=== PATIENT | female | born 1935 | race Caucasian/White ===

== ENCOUNTER 2024-06-26 17:48 | Inpatient (IN) ==
--- NOTE | 2024-06-26 18:23 | Emergency Department Note ---
Impression & Plan Fall, Acute right hip pain, Hematoma of right hip, Hypoxia ED Provider Note NAME: JOSIAH PATEL AGE: 88 SEX: F : 1935 ARRIVES VIA: Ambulance INFORMANT: [Patient][nursing] ED PROVIDER(S): [Eric Jackson MD] CHIEF COMPLAINT: Trauma HISTORY OF PRESENT ILLNESS: The patient is an 88-year-old female who fell around 14 hours ago. She lives alone. She somehow managed to get her feet tangled with her walker and fell. She injured her right hip. The patient was able to ambulate throughout the day but had quite a bit of pain. She noticed a large amount of swelling and did decide to present to the hospital. Prior to arrival, she took 3 Tylenol and her nightly Eliquis. The patient did strike her head with this fall, no loss of consciousness. No hematoma to the scalp. She is not short of breath. She denies any neck pain, back pain, chest pain or abdominal pain. No upper extremity pain. Her only injury seems to be to the right hip. EMS did note a large hematoma in the area where she complains of pain. Of note, the patient had a friend arrive and she states that the patient complained of feeling lightheaded yesterday. PMHx/PSHx/Social Hx: See Below PHYSICAL EXAM: GENERAL: Patient is in no acute distress. HEENT: No acute trauma, normocephalic atraumatic, mucous membranes moist, no nasal congestion. NECK: No stridor, no adenopathy, nontender cervical spine, trachea is midline. LUNGS: Clear to auscultation bilaterally, no wheeze, no rhonchi, breath sounds equal. Chest: Nontender chest wall, no contusions. HEART: Mildly tachycardic with what appears to be a regular rhythm. There are no obvious murmurs. ABDOMEN: Soft, nontender, no peritonitis. EXTREMITIES: No cyanosis. There is a large hematoma to the lateral aspect of the right hip. No gross deformity to the right lower extremity. Movement of this right hip when she is lying flat causes minimal pain. NEUROLOGIC: Oriented x 3, no acute motor or sensory deficits, no focal weakness. SKIN: No jaundice, no diaphoresis. Pelvis: Stable to rock. DIFFERENTIAL DIAGNOSIS: Intracranial bleeding, C-spine injury, pelvic fracture or hip fracture, hip dislocation, UTI, among others. EMERGENCY DEPARTMENT PROCEDURES: MEDICAL DECISION MAKING: There is no leukocytosis or concerning anemia. There is a normal platelet count. No coagulopathy by our testing. No renal failure or significant electrolyte abnormality. Bilirubin was mildly elevated, the remaining liver enzymes were unremarkable. ECG showed a sinus tachycardia, no obvious acute ischemia. Cardiac enzyme testing x 1 was not consistent with acute cardiac injury. Urinalysis showed dehydration, no infection. Respiratory bio fire returned negative. Brain CT showed no acute bleed or mass effect. C-spine CT showed no acute fracture. Films of the pelvis and right hip were performed, there was no fracture or hip dislocation. Chest x-ray did not show pneumonia or CHF. On exam, the patient had a large right hip hematoma that was tender to touch. The patient presents after falling. She has a large right hip hematoma which explains her pain. She does take Eliquis twice a day. The patient was given O2 supplementation as she was noted to be hypoxic, the cause for this is unclear. The patient is not short of breath. The patient is in need of a hospital stay given her findings and discomfort. She will need her hemoglobin trended and the hematoma followed clinically. I spoke with the patient and family. I spoke with case management, the on-call hospitalist was consulted. Prior/Outside records/notes reviewed: Today's EMS notes describing her presentation and transport to this hospital. ECG per my interpretation: Indication was fall. The ECG shows what appears to be a sinus tachycardia with a first-degree AV block. The rate is 101. LVH is present. There is no acute ST elevation. There are inverted T waves in the high lateral leads. No PVCs. The QTc is 461. Continuous Cardiac Monitoring per my interpretation: An order was placed for continuous cardiac monitoring. The monitor shows a rate of 102 with sinus tachycardia. Imaging/x-ray results per my interpretation: Chest film does not show CHF, pneumonia or pneumothorax. Pelvis and right hip films were done, there is a right prosthetic hip noted to be in proper position. No fracture seen. Chronic Medical/Social conditions affecting care: Advanced age, chronic Eliquis use. Care/Management discussed with: Case management, the on-call hospitalist. Level of care consideration(s): After review of the information above and other included data: --I believe the patient requires escalation of care to admission DISPOSITION: Admission Past Med/Surg History Problem List (Updated 06/27/24 @ 01:57 by Eric Jackson MD) Hypoxia (Acute) Hematoma of right hip (Acute) Acute right hip pain (Acute) Fall (Acute) Medical History Atrial fibrillation Social History Smoking Status: Former smoker Tobacco Type: Cigarettes Smoking End Date: 60+ years ago; Hx Alcohol Use: No Hx Substance Use: No Preferred Language: Persian Communication Ability: Effective Insurance Sales Executive Required: No Beliefs That Will Affect Care: None Current Living Situation: Alone Current Living Situation Comment: Lives at home alone Other Information That Helps Us Care for You: No Feels Safe at Home: Yes Safety Concerns: Feels Safe At This Time Assistive Devices: Cane, Denture - Upper, Denture - Lower, Glasses and Walker Allergies Allergies Allergy/AdvReac Type Severity Reaction Status Date / Time No Known Allergies Allergy Verified 06/26/24 20:22 Home Meds Home Medications Medication Instructions Recorded Confirmed apixaban 5 mg tablet (Eliquis) 5 mg PO BID 06/26/24 06/26/24 brimonidine 0.15 % eye drops 1 drp ophthalmic (eye) BID 06/27/24 06/27/24 travoprost 0.004 % eye drops 1 drp ophthalmic (eye) HS 06/27/24 06/27/24 Results & Data (ED) Vital Signs Vital Signs - 24 hr 06/26/24 17:59 06/26/24 17:59 06/26/24 18:00 Temperature 36.8 C Temperature Source Oral Pulse Rate 104 H Pulse Rate [Apical] Respiratory Rate 29 H Respiratory Depth Respiratory Pattern Blood Pressure 155/108 H Blood Pressure [Left Arm] Blood Pressure Mean 123 Blood Pressure Mean [Left Arm] Pulse Oximetry 87 L 88 L Oxygen Delivery Method Room Air Nasal Cannula Nasal Cannula Oxygen Flow Rate 2 0 Sepsis Recent Fever Within 48 Hours No Sepsis New/Unexplained Change in Mental Status No Sepsis Action Taken by Nursing Physician Notified Oxygen Flow Rate - Titration 2 Pulse Oximetry Post Tiitration 90 06/26/24 18:15 06/26/24 18:27 06/26/24 19:16 Temperature Temperature Source Pulse Rate 103 H Pulse Rate [Apical] 102 H Respiratory Rate 20 Respiratory Depth Respiratory Pattern Blood Pressure Blood Pressure [Left Arm] 139/108 H Blood Pressure Mean Blood Pressure Mean [Left Arm] 118 Pulse Oximetry 89 L 92 Oxygen Delivery Method Nasal Cannula Nasal Cannula Oxygen Flow Rate 2 3 Sepsis Recent Fever Within 48 Hours Sepsis New/Unexplained Change in Mental Status Sepsis Action Taken by Nursing Oxygen Flow Rate - Titration 4 Pulse Oximetry Post Tiitration 90 06/26/24 20:36 06/26/24 22:05 06/26/24 22:28 Temperature Temperature Source Pulse Rate 105 H Pulse Rate [Apical] 107 H 106 H Respiratory Rate 24 18 Respiratory Depth Normal Respiratory Pattern Regular Blood Pressure Blood Pressure [Left Arm] 133/92 132/100 Blood Pressure Mean Blood Pressure Mean [Left Arm] 105 110 Pulse Oximetry 90 91 Oxygen Delivery Method Nasal Cannula Nasal Cannula Oxygen Flow Rate 4 4 Sepsis Recent Fever Within 48 Hours Sepsis New/Unexplained Change in Mental Status Sepsis Action Taken by Nursing Oxygen Flow Rate - Titration Pulse Oximetry Post Tiitration Home Medications Current Medication List: was personally reviewed by me Laboratory Data Attestation: I reviewed the patient's lab results. 06/26/24 23:04 06/26/24 17:58 Lab Results 06/26/24 06/26/24 06/26/24 Range/Units 17:58 20:38 21:59 WBC 10.70 (4.8-10.8) K/ul RBC 4.09 L (4.20-5.40) M/uL Hgb 13.2 (12.0-16.0) g/dl Hct 40.7 (37.0-47.0) % MCV 99.5 (80.0-100.0) fL MCH 32.3 (25.0-34.0) pg MCHC 32.4 (32.0-36.0) g/dL RDW Std Deviation 52.0 H (36.4-46.3) fL RDW Coeff of Erlin 14.3 (11.5-14.5) % Plt Count 249 (130-400) K/uL MPV 9.3 L (9.4-12.4) fL Immature Gran % (Auto) 0.6 % Neut % (Auto) 75.9 % Lymph % (Auto) 17.0 % Hill % (Auto) 5.9 % Eos % (Auto) 0.3 % Baso % (Auto) 0.3 % Neut # (Auto) 8.13 H (1.40-6.50) K/uL Lymph # (Auto) 1.82 (1.20-3.40) K/uL Hill # (Auto) 0.63 H (0.11-0.59) K/uL Eos # (Auto) 0.03 (0.00-0.50) K/uL Baso # (Auto) 0.03 (0.00-0.20) K/uL Immature Gran # (Auto) 0.06 (0.01-0.20) K/uL PT 11.9 (9.0-12.0) Seconds INR 1.1 (0.9-1.1) APTT 31 (21-31) Seconds PTT Ratio 1.2 Sodium 135 L (136-145) mmol/L Potassium 4.3 (3.5-5.1) mmol/L Chloride 105 (98-107) mmol/L Carbon Dioxide 18 L (21-32) mmol/L Anion Gap 12 H (3-11) BUN 17 (6-23) mg/dl Creatinine 0.72 (0.6-1.2) mg/dl Est Cr Clr Drug Dosing 52.5 ml/min Est GFR ( Amer) 86.7 ml/min Est GFR (Non-Af Amer) 74.8 ml/min BUN/Creatinine Ratio 23.6 H (10-20) Glucose 110 H (70-99(Fasting)) mg/dl Calcium 9.5 (8.6-10.3) mg/dl Magnesium 1.7 (1.7-2.4) mg/dl Total Bilirubin 1.8 H (0.2-1.0) mg/dl AST 18 (13-39) U/L ALT 13 (7-52) U/L Alkaline Phosphatase 72 (34-104) U/L Troponin I High Sens 6.8 (0-14) pg/ml Total Protein 6.9 (6.0-8.3) gm/dl Albumin 4.5 (3.4-5.0) gm/dl Globulin 2.4 L (2.5-4.0) gm/dl Albumin/Globulin Ratio 1.9 (0.9-2) Urine Color Yellow Urine Appearance Clear (Clear) Urine pH 5.0 (4.5-7.5) Ur Specific [place] 1.025 (1.000-1.030) Urine Protein Trace H (Negative) Urine Glucose (UA) Negative (Negative) Urine Ketones 2+ H (Negative) Urine Blood Negative (Negative) Urine Nitrite Negative (Negative) Urine Bilirubin Negative (Negative) Urine Urobilinogen Negative (Negative) Ur Leukocyte Esterase Trace H (Negative) Urine RBC 0-2 (0-2) /hpf Urine WBC 0-5 (0-5) /hpf Ur Epithelial Cells 11-20 H (0-2) /hpf Urine Bacteria None Seen (None Seen) Adenovirus (PCR) Not Detected (NotDetected) B. pertussis DNA (PCR) Not Detected (NotDetected) B.parapertussis DNA PCR Not Detected (NotDetected) C. pneumoniae DNA (PCR) Not Detected (NotDetected) Coronavirus OC43 (PCR) Not Detected (NotDetected) Coronavirus HKU1 (PCR) Not Detected (NotDetected) Coronavirus 229E (PCR) Not Detected (NotDetected) SARS-CoV-2 (PCR) Not Detected (NotDetected) Coronavirus NL63 (PCR) Not Detected (NotDetected) Human Metapneumovir PCR Not Detected (NotDetected) Influenza Type A (PCR) Not Detected (NotDetected) Influenza Type B (PCR) Not Detected (NotDetected) M. pneumoniae (PCR) Not Detected (NotDetected) Parainfluenza 1 (PCR) Not Detected (NotDetected) Parainfluenza 2 (PCR) Not Detected (NotDetected) Parainfluenza 3 (PCR) Not Detected (NotDetected) Parainfluenza 4 (PCR) Not Detected (NotDetected) RSV (PCR) Not Detected (NotDetected) Entero/Rhino (PCR) Not Detected (NotDetected) Blood Type B Negative Antibody Screen NEGATIVE Administered Medications Acetaminophen (Acetaminophen 325 Mg Tab) 650 mg PO QID PRN PRN Reason: pain/fever Stop: 07/26/24 21:03 Last Admin: 06/26/24 23:15 Dose: 650 mg Documented By: EMB Discontinued Medications Albuterol (Albut/Ipratrop 3mg/0.5mg Neb 3 Ml Vial) 3 ml NEB NOW STA; Protocol Stop: 06/27/24 00:45 Last Admin: 06/27/24 01:02 Dose: 3 ml Documented By: ENRIQUE Magnesium Sulfate/Dextrose (Magnesium Sulfate / D5w) 1 gm in 100 mls @ 50 mls/hr IV ONE ONE Stop: 06/26/24 22:48 Last Infusion: 06/26/24 23:38 Dose: Infused Documented By: Admin: 06/26/24 21:55 Dose: 50 mls/hr Documented By: JEANNE Doxycycline Hyclate 100 mg/ (Dextrose) 100 mls @ 50 mls/hr IV NOW STA Stop: 06/27/24 00:40 Last Admin: 06/26/24 23:47 Dose: 50 mls/hr Documented By: JEANNE Ioversol (Optiray 320 125ml) 91 ml IV ONCE ONE Stop: 06/27/24 00:12 Last Admin: 06/27/24 01:20 Dose: Not Given Documented By: MG Ioversol (Optiray 320 125ml) 116 ml IV ONCE ONE Stop: 06/27/24 00:14 Last Admin: 06/27/24 00:14 Dose: 116 ml Documented By: CHEYENNE Metoprolol Tartrate (Metoprolol Tartrate 1 Mg/Ml Vial) 2.5 mg IV NOW STA Stop: 06/26/24 23:21 Last Admin: 06/26/24 23:25 Dose: 2.5 mg Documented By: EMB Imaging Data Radiologist's Impression: Hip/Pelvis X-Ray 06/26/24 18:05 XR hip RT 2V w pelvis CLINICAL HISTORY: Fall. COMPARISON: None FINDINGS: Right hip arthroplasty is intact. There is no periprosthetic fracture. There are no fractures within the pelvis or hips. Sacroiliac joints and symphysis pubis are intact. Lateral right thigh soft tissue swelling is present. IMPRESSION: 1. No fractures within the pelvis or hips. 2. Intact right hip arthroplasty. 3. Lateral right thigh soft tissue swelling. This favors a contusion. ACT 112: Negative or not required by law. Electronically signed by: Feroz Francis M.D. 06/26/2024 6:35 PM Chest X-Ray 06/26/24 18:12 PORTABLE SUPINE AP CHEST RADIOGRAPH CLINICAL HISTORY: trauma COMPARISON STUDY: No previous studies for comparison. FINDINGS: Lung volumes are normal. Lungs are clear. There is no pneumothorax or pleural effusion on supine exam. Cardiac size is normal. Mediastinal contours are normal. There is no evidence for pulmonary edema. IMPRESSION: No acute cardiopulmonary findings. ACT 112: Negative or not required by law. Electronically signed by: Feroz Francis M.D. 06/26/2024 6:[address] 06/26/24 18:15 Exam(s): CT C SPINE EXAM: CT Cervical Spine Without Intravenous Contrast CLINICAL HISTORY: Reason for exam: fall. TECHNIQUE: Axial computed tomography images of the cervical spine without intravenous contrast. CTDI is 22.95 mGy and DLP is 462.14 mGy-cm. Automated exposure control was utilized for the study. A dose lowering technique was utilized adhering to the principles of ALARA. COMPARISON: No relevant prior studies available. FINDINGS: Vertebrae: Grade 1 spondylolisthesis seen at C3/4 junction. There is C4/5 and C5/6 moderately advanced degenerative disc disease with disc space narrowing. No acute fracture. Soft tissues: Unremarkable. IMPRESSION: No acute fracture Electronically signed by: Jerson Arias MD 06/26/24 19:[address] 06/26/24 18:15 Exam(s): CT HEAD Without Contrast EXAM: CT Head Without Intravenous Contrast CLINICAL HISTORY: Reason for exam: fall, eliquis. TECHNIQUE: Axial computed tomography images of the head/brain without intravenous contrast. CTDI is 36.79 mGy and DLP is 624.41 mGy-cm. Automated exposure control was utilized for the study. A dose lowering technique was utilized adhering to the principles of ALARA. COMPARISON: No relevant prior studies available. FINDINGS: Brain: Chronic periventricular ischemic demolishing changes seen due to small vessel disease. No hemorrhage. Ventricles: Unremarkable. No ventriculomegaly. Bones/joints: Unremarkable. No acute fracture. Soft tissues: Unremarkable. Sinuses: Unremarkable as visualized. No acute sinusitis. Mastoid air cells: Unremarkable as visualized. No mastoid effusion. Other findings: Calcifications are seen in bilateral basal ganglion. IMPRESSION: No acute intracranial abnormality Electronically signed by: Jerson Arias MD 06/26/24 19:37 PM Discharge Plan Visit Data Chief Complaint: Trauma Stated Complaint: Fall ED Provider: Eric Jackson Discharge Problem: Fall, Acute right hip pain, Hematoma of right hip, Hypoxia Patient Disposition: Admitted As Inpatient Condition: Fair Discharge Instructions Interventions: ED Discharge Assessment Last Done: 06/27/24 00:03 Discharge Problem: Fall Qualifiers: Encounter type: initial encounter Qualified Code(s): W19.XXXA - Unspecified fall, initial encounter Hematoma of right hip Qualifiers: Encounter type: initial encounter Qualified Code(s): S70.01XA - Contusion of right hip, initial encounter
[2024-06-26 18:27] LABS: Basophils # (auto) 0.03 K/uL (0.00-0.20); Basophils % (auto) 0.3 %; Eosinophils # (auto) 0.03 K/uL (0.00-0.50); Eosinophils % (auto) 0.3 %; Hematocrit (blood only) 40.7 % (37.0-47.0); Hemoglobin 13.2 g/dl (12.0-16.0); Immature Granulocytes # (auto) 0.06 K/uL (0.01-0.20); Immature Granulocytes % (auto) 0.6 %; Lymphocytes # (auto) 1.82 K/uL (1.20-3.40); Mean Corpuscular Hemoglobin 32.3 pg (25.0-34.0); Mean Corpuscular Hgb Conc 32.4 g/dL (32.0-36.0); Mean Corpuscular Volume 99.5 fL (80.0-100.0); Mean Platelet Volume 9.3 fL (9.4-12.4); Monocytes # (auto) 0.63 K/uL (0.11-0.59); Monocytes % (auto) 5.9 %; Neutrophils # (auto) 8.13 K/uL (1.40-6.50); Neutrophils % (auto) 75.9 %; Platelet Count 249 K/uL (130-400); RDW Coefficient of Variation 14.3 % (11.5-14.5); Red Blood Count 4.09 M/uL (4.20-5.40)
[2024-06-26 18:34] LABS: INR 1.1 (0.9-1.1); Partial Thromboplastin Ratio 1.2; Partial Thromboplastin Time 31 Seconds (21-31); Prothrombin Time 11.9 Seconds (9.0-12.0)
--- NOTE | 2024-06-26 18:36 | XRay Report ---
XR hip RT 2V w pelvis CLINICAL HISTORY: Fall. COMPARISON: None FINDINGS: Right hip arthroplasty is intact. There is no periprosthetic fracture. There are no fractu res within the pelvis or hips. Sacroiliac joints and symphysis pubis are intact. Lateral right thigh soft tissue swelling is present. IMPRESSION: 1. No fractures within the pelvis or hips. 2. Intact right hip arthroplasty. 3. Lateral right thigh soft tissue swelling. This favors a contusion. ACT 112: Negative or not required by law. Electronically signed by: Feroz Francis M.D. 06/26/2024 6:35 PM
--- NOTE | 2024-06-26 18:37 | XRay Report ---
PORTABLE SUPINE AP CHEST RADIOGRAPH CLINICAL HISTORY: trauma COMPARISON STUDY: No previous studies for comparison. FINDINGS: Lung volumes are normal. Lungs are clear. There is no pneumothorax or pleural effusion on s upine exam. Cardiac size is normal. Mediastinal contours are normal. There is no evidence for pulmona ry edema. IMPRESSION: No acute cardiopulmonary findings. ACT 112: Negative or not required by law. Electronically signed by: Feroz Francis M.D. 06/26/2024 6:36 PM
[2024-06-26 18:39] LABS: Albumin Globulin Ratio 1.9 (0.9-2); Albumin Level 4.5 gm/dl (3.4-5.0); BUN Creatinine Ratio 23.6 (10-20); Bilirubin,Total 1.8 mg/dl (0.2-1.0); Calcium 9.5 mg/dl (8.6-10.3); Creatinine Clr Calc Pharmacy 52.5 ml/min; Est GFR (African American) 86.7 ml/min; Est GFR (Non-African American) 74.8 ml/min; Globulin 2.4 gm/dl (2.5-4.0); Magnesium 1.7 mg/dl (1.7-2.4); Potassium 4.3 mmol/L (3.5-5.1); Total Protein 6.9 gm/dl (6.0-8.3)
[2024-06-26 18:45] LABS: Troponin I High Sensitivity 6.8 pg/ml (0-14)
--- NOTE | 2024-06-26 19:38 | CT Scan Report ---
Exam(s): CT HEAD Without Contrast EXAM: CT Head Without Intravenous Contrast CLINICAL HISTORY: Reason for exam: fall, eliquis. TECHNIQUE: Axial computed tomography images of the head/brain without intravenous contrast. CTDI is 36.79 mGy and DLP is 624.41 mGy-cm. Automated exposure control was utilized for the study. A dose lowering technique was utilized adhering to the principles of ALARA. COMPARISON: No relevant prior studies available. FINDINGS: Brain: Chronic periventricular ischemic demolishing changes seen due to small vessel disease. No hemorrhage. Ventricles: Unremarkable. No ventriculomegaly. Bones/joints: Unremarkable. No acute fracture. Soft tissues: Unremarkable. Sinuses: Unremarkable as visualized. No acute sinusitis. Mastoid air cells: Unremarkable as visualized. No mastoid effusion. Other findings: Calcifications are seen in bilateral basal ganglion. IMPRESSION: No acute intracranial abnormality Electronically signed by: Jerson Arias MD 06/26/24 19:37 PM
--- NOTE | 2024-06-26 19:43 | CT Scan Report ---
Exam(s): CT C SPINE EXAM: CT Cervical Spine Without Intravenous Contrast CLINICAL HISTORY: Reason for exam: fall. TECHNIQUE: Axial computed tomography images of the cervical spine without intravenous contrast. CTDI is 22.95 mGy and DLP is 462.14 mGy-cm. Automated exposure control was utilized for the study. A dose lowering technique was utilized adhering to the principles of ALARA. COMPARISON: No relevant prior studies available. FINDINGS: Vertebrae: Grade 1 spondylolisthesis seen at C3/4 junction. There is C4/5 and C5/6 moderately advanced degenerative disc disease with disc space narrowing. No acute fracture. Soft tissues: Unremarkable. IMPRESSION: No acute fracture Electronically signed by: Jerson Arias MD 06/26/24 19:42 PM
[2024-06-26 20:56] LABS: Appearance Urine Clear (Clear); Bilirubin Urine Negative (Negative); Blood Urine Negative (Negative); Color Urine Yellow; Glucose Urine UA Negative (Negative); Ketones Urine 2+ (Negative); Leukocyte Esterase Urine Trace (Negative); Nitrite Urine Negative (Negative); Protein Urine Trace (Negative); Specific Gravity Urine 1.025 (1.000-1.030); Urobilinogen Urine Negative (Negative)
[2024-06-26 21:28] LABS: Bacteria Urine None Seen (None Seen); RBC Urine 0-2 /hpf (0-2); WBC Urine 0-5 /hpf (0-5)
[2024-06-26] MEDS: MAGNESIUM SULFATE / D5W 1 GM/100 ML BAG IV ONE (21:55)
--- NOTE | 2024-06-26 22:27 | History & Physical Report ---
Date of Service June 26, 2024 Assessment & Plan (1) Acute hypoxemic respiratory failure: Plan: Secondary to complicated bronchitis No sepsis for now CHF, no overt fluid overload although BNP elevated PAF on Eliquis, patient NSR, patient noncompliant with home beta-michael Traumatic head injury, traumatic right hip contusion secondary to fall hypertension, stable Hyperglycemia ro DM past tobacco abuse Medical telemetry Supplemental O2 Doxycycline, nebs stat Resume home beta-michael Hold Eliquis for now given trauma Repeat CT head [address] Resume Eliquis if H&H stable and CT head negative for bleed Check hemoglobin A1c PT OT eval DVT prophylaxis SCDs while Eliquis on hold DNR Total critical care time was 40 minutes. Text document was generated using [employer] voice recognition software. It may contain grammatical or spelling errors. Kindly contact undersigned for clarification of any documentation item in question. History of Present Illness Chief Complaint: Recurrent falls Primary Care Provider: Merlyn Arboleda PA-C History obtained from patient and records. Medical history significant for CHF, A-fib on Eliquis, hypertension, past tobacco abuse, glaucoma. Patient with junky cough symptoms the last couple of days. Denies aspiration. No chest pain or SOB. Not sure about sick contacts. Patient fell at home this morning. Feet got tangled in the walker. Walker hit patient's head. No LOC, syncope, chest pain, SOB. Achy right hip pain. Patient unable to get up but fell back again from weakness and lightheadedness. O2 sats 80s upon arrival at the ER. Medical History as above Surgical History : MARIA ISABEL, knee surgery Family History : Heart disease, DM Personal/Social history : past tobacco abuse, no EtOH intake Allergies Allergy/AdvReac Type Severity Reaction Status Date / Time No Known Allergies Allergy Verified 06/26/24 20:22 Home Medications Medication Instructions Recorded Confirmed Type apixaban 5 mg tablet (Eliquis) 5 mg PO BID 06/26/24 06/26/24 History brimonidine 0.15 % eye drops 1 drp ophthalmic (eye) BID 06/27/24 06/27/24 History travoprost 0.004 % eye drops 1 drp ophthalmic (eye) HS 06/27/24 06/27/24 History Past Med/Surg History Problem List (Updated 06/27/24 @ 07:27 by [place] MD) Acute hypoxemic respiratory failure Hypoxia (Acute) Hematoma of right hip (Acute) Acute right hip pain (Acute) Fall (Acute) Medical History Atrial fibrillation Social History Smoking Status: Former smoker Tobacco Type: Cigarettes Smoking End Date: 60+ years ago; Hx Alcohol Use: No Hx Substance Use: No Preferred Language: Georgian Communication Ability: Effective 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 Beliefs That Will Affect Care: None Current Living Situation: Alone Current Living Situation Comment: Lives at home alone Other Information That Helps Us Care for You: No Feels Safe at Home: Yes Safety Concerns: Feels Safe At This Time Assistive Devices: Cane, Denture - Upper, Denture - Lower, Glasses and Walker Review of Systems Review of Systems: As per HPI, all other systems reviewed and negative Physical Exam Physical Exam: GENERAL: Slightly uncomfortable, slightly anxious, slightly hard of hearing, no respiratory distress SKIN: Normal color, warm HEENT: Bespectacled, [place] palpebral conjunctivae, no ptosis, dry buccal mucosa, nasal cannula in place NECK : Supple, no tenderness CHEST : Decreased breath sounds, no tenderness HEART : Tachycardic, no obvious murmurs ABDOMEN: Some distention, nontender EXTREMITIES : Minimal LE swelling, right hip tenderness, no other conspicuous deformities noted NEUROLOGIC : Coherent, no facial asymmetry, slightly hard of hearing, gait and stance not assessed Results & Data Results & Data Vital Signs (Past 12 Hours) Vital Signs Temp Pulse Pulse Resp BP BP Pulse Ox 06/26/24 22:05 105 H 06/26/24 20:36 107 H 24 133/92 90 06/26/24 19:16 102 H 20 139/108 H 92 06/26/24 18:27 103 H 06/26/24 18:15 89 L 06/26/24 18:00 88 L 06/26/24 17:59 06/26/24 17:59 36.8 C 104 H 29 H 155/108 H 87 L O2 Del Method O2 Flow Rate 06/26/24 22:05 06/26/24 20:36 Nasal Cannula 4 06/26/24 19:16 Nasal Cannula 3 06/26/24 18:27 06/26/24 18:15 Nasal Cannula 2 06/26/24 18:00 Nasal Cannula 0 06/26/24 17:59 Nasal Cannula 2 06/26/24 17:59 Room Air Laboratory Results Laboratory Results WBC 10.70 K/ul (4.8-10.8) 06/26/24 17:58 RBC 4.09 M/uL (4.20-5.40) L 06/26/24 17:58 Hgb 13.2 g/dl (12.0-16.0) 06/26/24 17:58 Hct 40.7 % (37.0-47.0) 06/26/24 17:58 MCV 99.5 fL (80.0-100.0) 06/26/24 17:58 MCH 32.3 pg (25.0-34.0) 06/26/24 17:58 MCHC 32.4 g/dL (32.0-36.0) 06/26/24 17:58 RDW Std Deviation 52.0 fL (36.4-46.3) H 06/26/24 17:58 RDW Coeff of Erlin 14.3 % (11.5-14.5) 06/26/24 17:58 Plt Count 249 K/uL (130-400) 06/26/24 17:58 MPV 9.3 fL (9.4-12.4) L 06/26/24 17:58 Immature Gran % (Auto) 0.6 % 06/26/24 17:58 Neut % (Auto) 75.9 % 06/26/24 17:58 Lymph % (Auto) 17.0 % 06/26/24 17:58 Bonner % (Auto) 5.9 % 06/26/24 17:58 Eos % (Auto) 0.3 % 06/26/24 17:58 Baso % (Auto) 0.3 % 06/26/24 17:58 Neut # (Auto) 8.13 K/uL (1.40-6.50) H 06/26/24 17:58 Lymph # (Auto) 1.82 K/uL (1.20-3.40) 06/26/24 17:58 Bonner # (Auto) 0.63 K/uL (0.11-0.59) H 06/26/24 17:58 Eos # (Auto) 0.03 K/uL (0.00-0.50) 06/26/24 17:58 Baso # (Auto) 0.03 K/uL (0.00-0.20) 06/26/24 17:58 Immature Gran # (Auto) 0.06 K/uL (0.01-0.20) 06/26/24 17:58 PT 11.9 Seconds (9.0-12.0) 06/26/24 17:58 INR 1.1 (0.9-1.1) 06/26/24 17:58 APTT 31 Seconds (21-31) 06/26/24 17:58 PTT Ratio 1.2 06/26/24 17:58 Sodium 135 mmol/L (136-145) L 06/26/24 17:58 Potassium 4.3 mmol/L (3.5-5.1) 06/26/24 17:58 Chloride 105 mmol/L (98-107) 06/26/24 17:58 Carbon Dioxide 18 mmol/L (21-32) L 06/26/24 17:58 Anion Gap 12 (3-11) H 06/26/24 17:58 BUN 17 mg/dl (6-23) 06/26/24 17:58 Creatinine 0.72 mg/dl (0.6-1.2) 06/26/24 17:58 Est Cr Clr Drug Dosing 52.5 ml/min 06/26/24 17:58 Est GFR ( Amer) 86.7 ml/min 06/26/24 17:58 Est GFR (Non-Af Amer) 74.8 ml/min 06/26/24 17:58 BUN/Creatinine Ratio 23.6 (10-20) H 06/26/24 17:58 Glucose 110 mg/dl (70-99(Fasting)) H 06/26/24 17:58 Calcium 9.5 mg/dl (8.6-10.3) 06/26/24 17:58 Magnesium 1.7 mg/dl (1.7-2.4) 06/26/24 17:58 Total Bilirubin 1.8 mg/dl (0.2-1.0) H 06/26/24 17:58 AST 18 U/L (13-39) 06/26/24 17:58 ALT 13 U/L (7-52) 06/26/24 17:58 Alkaline Phosphatase 72 U/L (34-104) 06/26/24 17:58 Troponin I High Sens 6.8 pg/ml (0-14) 06/26/24 17:58 Total Protein 6.9 gm/dl (6.0-8.3) 06/26/24 17:58 Albumin 4.5 gm/dl (3.4-5.0) 06/26/24 17:58 Globulin 2.4 gm/dl (2.5-4.0) L 06/26/24 17:58 Albumin/Globulin Ratio 1.9 (0.9-2) 06/26/24 17:58 Urine Color Yellow 06/26/24 20:38 Urine Appearance Clear (Clear) 06/26/24 20:38 Urine pH 5.0 (4.5-7.5) 06/26/24 20:38 Ur Specific [place] 1.025 (1.000-1.030) 06/26/24 20:38 Urine Protein Trace (Negative) H 06/26/24 20:38 Urine Glucose (UA) Negative (Negative) 06/26/24 20:38 Urine Ketones 2+ (Negative) H 06/26/24 20:38 Urine Blood Negative (Negative) 06/26/24 20:38 Urine Nitrite Negative (Negative) 06/26/24 20:38 Urine Bilirubin Negative (Negative) 06/26/24 20:38 Urine Urobilinogen Negative (Negative) 06/26/24 20:38 Ur Leukocyte Esterase Trace (Negative) H 06/26/24 20:38 Urine RBC 0-2 /hpf (0-2) 06/26/24 20:38 Urine WBC 0-5 /hpf (0-5) 06/26/24 20:38 Ur Epithelial Cells 11-20 /hpf (0-2) H 06/26/24 20:38 Urine Bacteria None Seen (None Seen) 06/26/24 20:38 Blood Type B Negative 06/26/24 17:58 Antibody Screen NEGATIVE 06/26/24 17:58 Impressions Hip/Pelvis X-Ray 06/26/24 18:05 XR hip RT 2V w pelvis CLINICAL HISTORY: Fall. COMPARISON: None FINDINGS: Right hip arthroplasty is intact. There is no periprosthetic fracture. There are no fractures within the pelvis or hips. Sacroiliac joints and symphysis pubis are intact. Lateral right thigh soft tissue swelling is present. IMPRESSION: 1. No fractures within the pelvis or hips. 2. Intact right hip arthroplasty. 3. Lateral right thigh soft tissue swelling. This favors a contusion. ACT 112: Negative or not required by law. Electronically signed by: Feroz Francis M.D. 06/26/2024 6:35 PM Chest X-Ray 06/26/24 18:12 PORTABLE SUPINE AP CHEST RADIOGRAPH CLINICAL HISTORY: trauma COMPARISON STUDY: No previous studies for comparison. FINDINGS: Lung volumes are normal. Lungs are clear. There is no pneumothorax or pleural effusion on supine exam. Cardiac size is normal. Mediastinal contours are normal. There is no evidence for pulmonary edema. IMPRESSION: No acute cardiopulmonary findings. ACT 112: Negative or not required by law. Electronically signed by: Feroz Francis M.D. 06/26/2024 6:[address] 06/26/24 18:15 Exam(s): CT C SPINE EXAM: CT Cervical Spine Without Intravenous Contrast CLINICAL HISTORY: Reason for exam: fall. TECHNIQUE: Axial computed tomography images of the cervical spine without intravenous contrast. CTDI is 22.95 mGy and DLP is 462.14 mGy-cm. Automated exposure control was utilized for the study. A dose lowering technique was utilized adhering to the principles of ALARA. COMPARISON: No relevant prior studies available. FINDINGS: Vertebrae: Grade 1 spondylolisthesis seen at C3/4 junction. There is C4/5 and C5/6 moderately advanced degenerative disc disease with disc space narrowing. No acute fracture. Soft tissues: Unremarkable. IMPRESSION: No acute fracture Electronically signed by: Jerson Arias MD 06/26/24 19:[address] 06/26/24 18:15 Exam(s): CT HEAD Without Contrast EXAM: CT Head Without Intravenous Contrast CLINICAL HISTORY: Reason for exam: fall, eliquis. TECHNIQUE: Axial computed tomography images of the head/brain without intravenous contrast. CTDI is 36.79 mGy and DLP is 624.41 mGy-cm. Automated exposure control was utilized for the study. A dose lowering technique was utilized adhering to the principles of ALARA. COMPARISON: No relevant prior studies available. FINDINGS: Brain: Chronic periventricular ischemic demolishing changes seen due to small vessel disease. No hemorrhage. Ventricles: Unremarkable. No ventriculomegaly. Bones/joints: Unremarkable. No acute fracture. Soft tissues: Unremarkable. Sinuses: Unremarkable as visualized. No acute sinusitis. Mastoid air cells: Unremarkable as visualized. No mastoid effusion. Other findings: Calcifications are seen in bilateral basal ganglion. IMPRESSION: No acute intracranial abnormality Electronically signed by: Jerson Arias MD 06/26/24 19:[address]: LUNGS: No focal consolidation, pleural effusion, or pneumothorax. Atelectasis at the lung bases. No acute pulmonary embolism. Diagnostic Findings EKG as per my interpretation :Rate 105, sinus tachycardia, LAD, LAFB, LVH, septal infarct, T wave abnormalities lateral leads
[2024-06-26] MEDS ORDERED: PROMETHAZINE 6.25 MG/50.25 ML BAG IV PRN (22:41)
[2024-06-26 22:55] LABS: Adenovirus PCR Not Detected (NotDetected); Bordetella parapertussis PCR Not Detected (NotDetected); Bordetella pertussis PCR Not Detected (NotDetected); Chlamydia pneumoniae PCR Not Detected (NotDetected); Coronavirus 229E PCR Not Detected (NotDetected); Coronavirus CoV-2 (COVID19)PCR Not Detected (NotDetected); Coronavirus HKU1 PCR Not Detected (NotDetected); Coronavirus NL63 PCR Not Detected (NotDetected); Coronavirus OC43PCR Not Detected (NotDetected); Human Metapneumovirus PCR Not Detected (NotDetected); Influenza A PCR Not Detected (NotDetected); Influenza B PCR Not Detected (NotDetected); Mycoplasma pneumoniae PCR Not Detected (NotDetected); Parainfluenza Virus 1 PCR Not Detected (NotDetected); Parainfluenza Virus 2 PCR Not Detected (NotDetected); Parainfluenza Virus 3 PCR Not Detected (NotDetected); Parainfluenza Virus 4 PCR Not Detected (NotDetected); Respiratory Syncytial VirusPCR Not Detected (NotDetected); Rhinovirus/Enterovirus PCR Not Detected (NotDetected)
[2024-06-26 23:15] LABS: Base Excess VBG -5.5 mEq/L; HCO3 VBG 18 mmol/L; Oxygen Saturation VBG 60.1 %; PCO2 VBG 27 mmHg (38-50); PO2 VBG 36 mmHg; pH VBG 7.42 (7.36-7.41)
[2024-06-26] MEDS: ACETAMINOPHEN 325 MG TAB PO PRN (23:15)
[2024-06-26 23:22] LABS: Hematocrit (blood only) 37.6 % (37.0-47.0); Hemoglobin 12.7 g/dl (12.0-16.0)
[2024-06-26] MEDS: METOPROLOL TARTRATE 1 MG/ML VIAL IV STA (23:25)
[2024-06-26] MEDS: DOXYCYCLINE HYCLATE 100 MG in DEXTROSE 5% MINI-B 100 ML IV STA (23:47)
[2024-06-27] MEDS: OPTIRAY 320 125ml IV ONE ×2 (00:14→01:20)
[2024-06-27] MEDS: ALBUT/IPRATROP 3MG/0.5MG NEB 3 ML VIAL NEB STA (01:02)
--- NOTE | 2024-06-27 01:15 | CT Scan Report ---
Exam(s): CTA CHEST IV Amt: 116 cc opti 320 EXAM: CT Angiography Chest With Intravenous Contrast CLINICAL HISTORY: Reason for exam: low o2,sob. TECHNIQUE: Axial computed tomographic angiography images of the chest with intravenous contrast. Automated exposure control was utilized for the study. A dose lowering technique was utilized adhering to the principles of ALARA. MIP reconstructed images were created and reviewed. COMPARISON: No relevant prior studies available. FINDINGS: LUNGS: No focal consolidation, pleural effusion, or pneumothorax. Atelectasis at the lung bases. HEART: Cardiomegaly. VASCULATURE: No acute pulmonary embolism. Atherosclerotic changes of the aorta. THYROID: Within normal limits. MEDIASTINUM + LYMPH NODES: There are no pathologically enlarged mediastinal, hilar, or axillary lymph nodes. SUPERIOR ABDOMEN: Hepatic steatosis. MUSCULOSKELETAL: Degenerative changes. IMPRESSION: No acute pulmonary embolism. Electronically signed by: Naresh Waters MD 06/27/24 01:14 AM
[2024-06-27 07:04] LABS: Estimated Average Glucose 111 mg/dl; Hemoglobin A1C 5.5 % (4.5-5.6)
[2024-06-27 07:17] LABS: Basophils # (auto) 0.02 K/uL (0.00-0.20); Basophils % (auto) 0.3 %; Eosinophils # (auto) 0.02 K/uL (0.00-0.50); Eosinophils % (auto) 0.3 %; Hematocrit (blood only) 33.7 % (37.0-47.0); Immature Granulocytes # (auto) 0.03 K/uL (0.01-0.20); Immature Granulocytes % (auto) 0.4 %; Lymphocytes % (auto) 24.1 %; Mean Corpuscular Hemoglobin 32.4 pg (25.0-34.0); Mean Corpuscular Hgb Conc 32.6 g/dL (32.0-36.0); Mean Corpuscular Volume 99.1 fL (80.0-100.0); Mean Platelet Volume 9.6 fL (9.4-12.4); Monocytes # (auto) 0.64 K/uL (0.11-0.59); Monocytes % (auto) 8.1 %; Neutrophils # (auto) 5.28 K/uL (1.40-6.50); Neutrophils % (auto) 66.8 %; Platelet Count 216 K/uL (130-400); RDW Coefficient of Variation 14.4 % (11.5-14.5); RDW Standard Deviation 52.9 fL (36.4-46.3); White Blood Count 7.89 K/ul (4.8-10.8)
[2024-06-27 07:33] LABS: BUN Creatinine Ratio 26.6 (10-20); Calcium 8.9 mg/dl (8.6-10.3); Creatinine Clr Calc Pharmacy 47.9 ml/min; Est GFR (African American) 77.5 ml/min; Est GFR (Non-African American) 66.8 ml/min
--- NOTE | 2024-06-27 08:13 | CT Scan Report ---
CT OF THE HEAD WITHOUT CONTRAST CLINICAL HISTORY: ffup, head trauma, eliquis COMPARISON STUDY: Head CT June 26, 2024. CT DOSE: 625.8 mGy.cm TECHNIQUE: Helical axial images of the head were obtained without IV contrast. Automated exposure con trol was utilized for the study. A dose lowering technique was utilized adhering to the principles o f ALARA. FINDINGS: No acute intracranial hemorrhage, midline shift or mass effect is present. The ventricular system is unremarkable. The basal cisterns are patent. No extra-axial collections are present. Bilate ral basal ganglia calcification is again noted. There is moderate atrophy and presumed small vessel d isease. There are no findings to suggest acute dural sinus thrombosis or acute territorial infarct. N o significant calvarial abnormalities are present. Visualized portions of the sinuses and mastoid air cells are clear. IMPRESSION: 1. No acute intracranial findings. 2. No calvarial fractures. ACT 112: Negative or not required by law. Electronically signed by: Feroz Francis M.D. 06/27/2024 8:11 AM
[2024-06-27] MEDS: BRIMONIDINE TARTRATE-P 0.15% 5 ML BTL OP SCH (09:10)
[2024-06-27] MEDS: DOXYCYCLINE HYCLATE 100 MG CAP PO SCH (09:12)
[2024-06-27] MEDS: METOPROLOL TARTRATE 25 MG TAB PO SCH (11:12)
--- NOTE | 2024-06-27 13:14 | Hospitalist Progress Note ---
Date of Service June 27, 2024 Assessment & Plan (1) Fall: Plan: Was admitted from primary care service with history of recurrent falls She has had a fall on the morning of admission when her feet got tangled in the walker Traumatic head injury, traumatic right hip contusion secondary to fall CT of the head and neck and relevant x-rays did not show any fracture Will get PT and OT evaluation and may need placement (2) Acute hypoxemic respiratory failure: Plan: She was noted to be hypoxic with shortness of breath in the emergency room with ongoing complaints of productive cough for the last few days CT of the chest was unremarkable and CTA did not show any pulmonary embolism No history of COPD Likely has complicated bronchitis No sepsis for now Started on doxycycline and will continue and finish the course Has been getting nebulized bronchodilator as needed as well Clinically much better May need a 2 steps O2 saturation test prior to discharge No history of CHF and the chest x-ray is not showing any congestive changes BNP was minimally high No signs of fluid overload Hypertension, stable Hyperglycemia ro DM HbA1c is 5.5 Past tobacco abuse DVT prophylaxis SCDs while Eliquis on hold Will start Eliquis DNR (3) Atrial fibrillation: Plan: PAF on Eliquis, patient NSR, patient noncompliant with home beta-michael Rate remains high at around 91 She remains asymptomatic Will start Eliquis Admission and Anticipated Discharge Date Admission Date: June 26, 2024 Subjective 06/27/2024 The patient was seen and examined in medical telemetry unit She was admitted with recurrent falls and noted to have cough with increasing shortness of breath Noted to be hypoxic in the emergency room and has been requiring up to 6 L to maintain saturation Noted to be very weak and lethargic this morning but no other acute symptoms Review of Systems Review of Systems: All systems reviewed and are unremarkable except as noted below Physical Exam Physical Exam: Sitting on a chair without any acute distress Constitutional: + ill appearing and average body habitus Eyes: PERRL, conjunctivae normal, anicteric sclerae ENMT: external ear and nose normal, oropharynx normal Neck: trachea midline, no thyromegaly Respiratory: + respiratory distress ( minimal respira tory distress at rest) Auscultation: + diminished lung sounds, + crackles ( occasional crackles at the bases) and + wheezes ( wheezing anteriorly) Cardiovascular: Rate/Rhythm: regular rate and regular rhythm Heart Sounds: normal S1 and normal S2; no murmur Extremities: no edema Gastrointestinal (Abdomen): Inspection/Auscultation: normal bowel sounds; abdomen not distended Percussion/Palpation: abdomen soft; abdomen nontender Musculoskeletal: No acute arthritis involving any of the joint Neurologic: normal touch/pain/proprioception and moves all extremities; no focal motor deficits Lymphatic: no cervical or axillary lymphadenopathy Results & Data Results & Data Vital Signs (Past 12 Hours) Vital Signs Temp Pulse Pulse Resp BP BP Pulse Ox 06/27/24 11:24 36.6 C 91 H 20 104/71 91 06/27/24 08:22 36.6 C 90 20 116/74 90 06/27/24 07:37 06/27/24 03:57 36.4 C L 89 20 107/76 92 06/27/24 01:05 85 20 90 06/27/24 00:56 36.5 C 76 18 133/82 93 O2 Del Method O2 Flow Rate 06/27/24 11:24 Oxymask 6 06/27/24 08:22 Oxymask 6 06/27/24 07:37 Non-rebreather 06/27/24 03:57 Oxymask 6 06/27/24 01:05 Oxymask 6 06/27/24 00:56 Oxymask 6 Laboratory Results Short CBC 06/26/24 06/26/24 06/27/24 Range/Units 17:58 23:04 06:52 WBC 10.70 7.89 (4.8-10.8) K/ul Hgb 13.2 12.7 11.0 L (12.0-16.0) g/dl Hct 40.7 37.6 33.7 L (37.0-47.0) % Plt Count 249 216 (130-400) K/uL BMP 06/26/24 06/27/24 17:58 06:52 Sodium 135 L 133 L Potassium 4.3 4.0 Chloride 105 105 Carbon Dioxide 18 L 18 L BUN 17 21 Creatinine 0.72 0.79 Glucose 110 H 104 H Calcium 9.5 8.9 Liver Function 06/26/24 Range/Units 17:58 Total Bilirubin 1.8 H (0.2-1.0) mg/dl AST 18 (13-39) U/L ALT 13 (7-52) U/L Alkaline Phosphatase 72 (34-104) U/L Albumin 4.5 (3.4-5.0) gm/dl Urine 06/26/24 Range/Units 20:38 Urine Color Yellow Urine Appearance Clear (Clear) Urine pH 5.0 (4.5-7.5) Ur Specific [place] 1.025 (1.000-1.030) Urine Protein Trace H (Negative) Urine Glucose (UA) Negative (Negative) Medications Administered Current Inpatient Medications Acetaminophen (Acetaminophen 325 Mg Tab) 650 mg PO QID PRN PRN Reason: pain/fever Stop: 07/26/24 21:03 Last Admin: 06/27/24 09:55 Dose: 650 mg Brimonidine Tartrate (Brimonidine Tartrate-P 0.15% 5 Ml Btl) 1 drops OP BID [facility] Stop: 07/27/24 08:59 Last Admin: 06/27/24 09:10 Dose: 1 btl Doxycycline Hyclate (Doxycycline Hyclate 100 Mg Cap) 100 mg PO BID [facility] Stop: 07/04/24 08:59 Last Admin: 06/27/24 09:12 Dose: 100 mg Promethazine HCl (Phenergan) 6.25 mg in 50.25 mls @ 201 mls/hr IV Q6H PRN PRN Reason: Nausea And Vomiting Stop: 07/26/24 22:40 Metoprolol Tartrate (Metoprolol Tartrate 25 Mg Tab) 25 mg PO BID [facility] Stop: 07/27/24 08:59 Last Admin: 06/27/24 11:12 Dose: 25 mg Travoprost (Travoprost Z 0.004% Oph Soln 2.5 Ml Btl) 1 drops OP HS [facility] Stop: 07/27/24 20:59 (1) Fall Encounter type: initial encounter Qualified Code(s): W19.XXXA - Unspecified fall, initial encounter
[2024-06-27] MEDS: TRAVOPROST Z 0.004% OPH SOLN 2.5 ML BTL OP SCH (21:07)
[2024-06-28 07:13] LABS: Basophils # (auto) 0.02 K/uL (0.00-0.20); Basophils % (auto) 0.2 %; Eosinophils # (auto) 0.06 K/uL (0.00-0.50); Eosinophils % (auto) 0.7 %; Hematocrit (blood only) 29.1 % (37.0-47.0); Hemoglobin 9.7 g/dl (12.0-16.0); Immature Granulocytes # (auto) 0.03 K/uL (0.01-0.20); Immature Granulocytes % (auto) 0.4 %; Lymphocytes # (auto) 2.44 K/uL (1.20-3.40); Lymphocytes % (auto) 29.9 %; Mean Corpuscular Hemoglobin 32.8 pg (25.0-34.0); Mean Corpuscular Hgb Conc 33.3 g/dL (32.0-36.0); Mean Corpuscular Volume 98.3 fL (80.0-100.0); Mean Platelet Volume 9.8 fL (9.4-12.4); Monocytes # (auto) 0.64 K/uL (0.11-0.59); Monocytes % (auto) 7.8 %; Neutrophils # (auto) 4.98 K/uL (1.40-6.50); Platelet Count 203 K/uL (130-400); RDW Coefficient of Variation 14.4 % (11.5-14.5); RDW Standard Deviation 52.3 fL (36.4-46.3); Red Blood Count 2.96 M/uL (4.20-5.40); White Blood Count 8.17 K/ul (4.8-10.8)
[2024-06-28 07:17] LABS: BUN Creatinine Ratio 29.7 (10-20); Calcium 8.9 mg/dl (8.6-10.3); Creatinine Clr Calc Pharmacy 41.6 ml/min; Est GFR (African American) 65.3 ml/min; Est GFR (Non-African American) 56.3 ml/min; Phosphorus 3.9 mg/dl (2.5-4.9)
[2024-06-28] MEDS: INFLUENZA VACC TS2024-25(65y+)/PF (IIV3) 0.5mL Syr IM ONE (10:52)
[2024-06-28] MEDS: PNEUMOCOCCAL VACCINE (PCV20) 20-VAL CONJ-DIP CRM/PF 0.5 ML SYR IM ONE (10:55)
--- NOTE | 2024-06-28 15:03 | Hospitalist Progress Note ---
Date of Service June 28, 2024 Assessment & Plan (1) Acute hypoxemic respiratory failure: (2) Fall: (3) Contusion of right hip: (4) Anemia: (5) Atrial fibrillation: Plan Patient status post fall with no obvious fractures, contusion the right hip also noted acute hypoxia. Chest CT unremarkable. Continuing oxygen needs Patient also noted declining hemoglobin, no obvious blood loss. Will continue to trend may need further evaluation if continues to trend downward, concern of possible hematoma developing on the hip. Liban currently on hold Continue therapies Case management continuing to pursue possible placement for rehabilitation [facility] Admission and Anticipated Discharge Date Admission Date: June 26, 2024 Subjective Patient feeling as though she is overall improving. Physical Exam Physical Exam: Constitutional: Alert, sitting on edge of bed, no acute distress HEENT: Mucous membranes moist. Lungs: Clear to auscultation, decreased, no wheezes rales or rhonchi CV: S1-S2, regular Abdomen: Soft, nontender, nondistended Extremities: No significant edema Neuro: No focal deficits Psych: Cooperative, normal mood Results & Data Results & Data Vital Signs (Past 12 Hours) Vital Signs Temp Pulse Pulse Resp BP Pulse Ox O2 Del Method 06/28/24 14:31 95 Nasal Cannula 06/28/24 14:05 65 06/28/24 11:35 36.5 C 54 L 19 120/74 98 Nasal Cannula 06/28/24 09:41 58 L 06/28/24 07:47 36.8 C 60 16 132/80 98 Nasal Cannula 06/28/24 07:38 Nasal Cannula 06/28/24 04:04 36.7 C 65 20 105/71 96 Nasal Cannula O2 Flow Rate 06/28/24 14:31 4 06/28/24 14:05 06/28/24 11:35 2 06/28/24 09:41 06/28/24 07:47 4 06/28/24 07:38 4 06/28/24 04:04 4 Diagnostic Findings Reviewed imaging, laboratory and diagnostic studies. Pertinent findings as below. Hemoglobin 9.7, trending down (2) Fall Encounter type: initial encounter Qualified Code(s): W19.XXXA - Unspecified fall, initial encounter
[2024-06-29 06:34] LABS: Hematocrit (blood only) 28.8 % (37.0-47.0); Hemoglobin 9.4 g/dl (12.0-16.0); Mean Corpuscular Hemoglobin 33.1 pg (25.0-34.0); Mean Corpuscular Hgb Conc 32.6 g/dL (32.0-36.0); Mean Corpuscular Volume 101.4 fL (80.0-100.0); Mean Platelet Volume 9.3 fL (9.4-12.4); Platelet Count 195 K/uL (130-400); RDW Coefficient of Variation 14.2 % (11.5-14.5); RDW Standard Deviation 52.7 fL (36.4-46.3); Red Blood Count 2.84 M/uL (4.20-5.40); White Blood Count 6.84 K/ul (4.8-10.8)
[2024-06-29 06:47] LABS: BUN Creatinine Ratio 34.9 (10-20); Calcium 9.1 mg/dl (8.6-10.3); Creatinine Clr Calc Pharmacy 45.6 ml/min; Potassium 4.3 mmol/L (3.5-5.1)
[2024-06-29 07:27] VITALS: RESP 18
--- NOTE | 2024-06-29 16:07 | Hospitalist Progress Note ---
Date of Service June 29, 2024 Assessment & Plan (1) Hematoma of right hip: (2) Contusion of right hip: (3) Fall: (4) Atrial fibrillation: (5) Acute blood loss anemia: (6) Acute hypoxemic respiratory failure: Plan Patient steadily improving status post fall with right hip contusion and hematoma. Patient will continue to benefit from some additional rehabilitation. Case management pursuing swing bed at [place]. Insurance authorization pending. Patient hemoglobin has stabilized. Acute blood loss anemia due to right hip hematoma. Would recommend holding Eliquis for 7 days status post fall and then can safely resume anticoagulation for her atrial fibrillation. Patient has been titrated off oxygen With adequate O2 sat on room air. Phone conversation with patient's son. Given update. Aware that we are awaiting placement to swing bed. Admission and Anticipated Discharge Date Admission Date: June 26, 2024 Subjective Patient significantly improved. On room air. No shortness of breath. Walked with therapy down the [place] and maintain adequate O2 sat. It is sore on her right hip. Physical Exam Physical Exam: Constitutional: Alert HEENT: Mucous membranes moist. Lungs: Clear to auscultation, decreased, no wheezes rales or rhonchi CV: S1-S2, regular Abdomen: Soft, nontender, nondistended Extremities: Large contusion/hematoma right lateral hip and thigh Neuro: No focal deficits Psych: Cooperative, normal mood Results & Data Results & Data Vital Signs (Past 12 Hours) Vital Signs Temp Pulse Resp BP Pulse Ox O2 Del Method 06/29/24 15:52 37.0 C 55 L 18 125/76 99 Room Air 06/29/24 07:26 36.6 C 72 18 133/78 100 Room Air Diagnostic Findings Reviewed imaging, laboratory and diagnostic studies. Pertinent findings as below. Hemoglobin 9.4 stable (1) Hematoma of right hip Encounter type: initial encounter Qualified Code(s): S70.01XA - Contusion of right hip, initial encounter (3) Fall Encounter type: initial encounter Qualified Code(s): W19.XXXA - Unspecified fall, initial encounter
[2024-06-30 07:19] VITALS: TEMP 97.7; O2SAT 93
--- NOTE | 2024-06-30 11:15 | Hospitalist Progress Note ---
Date of Service June 30, 2024 Assessment & Plan (1) Fall: Plan: Was admitted from primary care service with history of recurrent falls She has had a fall on the morning of admission when her feet got tangled in the walker Traumatic head injury, traumatic right hip contusion secondary to fall CT of the head and neck and relevant x-rays did not show any fracture Will get PT and OT evaluation and may need placement Will be transferred to [facility] interim care Right lateral thigh hematoma Right hip x-ray 10/05/1929 showed soft tissue swelling Has extensive bruising involving the left lateral thigh with a small hematoma She has been getting physical therapy and denies any significant problem with that The bruising will take at least 4 to 6 weeks to resolve (2) Acute hypoxemic respiratory failure: Plan: She was noted to be hypoxic with shortness of breath in the emergency room with ongoing complaints of productive cough for the last few days CT of the chest was unremarkable and CTA did not show any pulmonary embolism No history of COPD Likely has complicated bronchitis No sepsis for now Started on doxycycline and will continue and finish the course Has been getting nebulized bronchodilator as needed as well Clinically much better has been saturating normally on room air and does not have any shortness of breath with activity No history of CHF and the chest x-ray is not showing any congestive changes BNP was minimally high No signs of fluid overload Hypertension, stable Hyperglycemia ro DM HbA1c is 5.5 Past tobacco abuse DVT prophylaxis SCDs while Eliquis on hold Will start Eliquis Will hold Eliquis for about 5 more days because of the hematoma that developed on the right lateral thigh following the fall DNR (3) Atrial fibrillation: Plan: PAF on Eliquis, patient NSR, patient noncompliant with home beta-michael Rate remains high at around 91 She remains asymptomatic Will start Eliquis Admission and Anticipated Discharge Date Admission Date: June 26, 2024 Subjective 06/27/2024 The patient was seen and examined in medical telemetry unit She was admitted with recurrent falls and noted to have cough with increasing shortness of breath Noted to be hypoxic in the emergency room and has been requiring up to 6 L to maintain saturation Noted to be very weak and lethargic this morning but no other acute symptoms 06/30/2024 The patient was seen and examined in medical telemetry unit She has been complaining of some pain in the right lateral thigh but otherwise doing fine Denies any chest pain, palpitation or shortness of breath She will be discharged this afternoon to a skilled facility Review of Systems Review of Systems: All systems reviewed and are unremarkable except as noted below Physical Exam Physical Exam: lying in bed without any acute distress Constitutional: + ill appearing and average body habitus Eyes: PERRL, conjunctivae normal, anicteric sclerae ENMT: external ear and nose normal, oropharynx normal Neck: trachea midline, no thyromegaly Respiratory: + respiratory distress ( minimal respira tory distress at rest) Auscultation: + diminished lung sounds, + crackles ( occasional crackles at the bases) and + wheezes ( wheezing anteriorly) Cardiovascular: Rate/Rhythm: regular rate and regular rhythm Heart Sounds: normal S1 and normal S2; no murmur Extremities: no edema Gastrointestinal (Abdomen): Inspection/Auscultation: normal bowel sounds; abdomen not distended Percussion/Palpation: abdomen soft; abdomen nontender Musculoskeletal: extensive bruising involving the upper right lateral thigh with hematoma Neurologic: normal touch/pain/proprioception and moves all extremities; no focal motor deficits Lymphatic: no cervical or axillary lymphadenopathy Results & Data Results & Data Vital Signs (Past 12 Hours) Vital Signs Temp Pulse Resp BP Pulse Ox O2 Del Method 06/30/24 07:18 36.5 C 62 18 136/79 93 Room Air 06/29/24 23:29 36.6 C 67 18 108/62 95 Room Air Medications Administered Current Inpatient Medications Acetaminophen (Acetaminophen 325 Mg Tab) 650 mg PO QID PRN PRN Reason: pain/fever Stop: 07/26/24 21:03 Last Admin: 06/30/24 10:28 Dose: 650 mg Brimonidine Tartrate (Brimonidine Tartrate-P 0.15% 5 Ml Btl) 1 drops OP BID [facility] Stop: 07/27/24 08:59 Last Admin: 06/30/24 07:47 Dose: 1 drops Doxycycline Hyclate (Doxycycline Hyclate 100 Mg Cap) 100 mg PO BID [facility] Stop: 07/04/24 08:59 Last Admin: 06/30/24 07:48 Dose: 100 mg Promethazine HCl (Phenergan) 6.25 mg in 50.25 mls @ 201 mls/hr IV Q6H PRN PRN Reason: Nausea And Vomiting Stop: 07/26/24 22:40 Metoprolol Tartrate (Metoprolol Tartrate 25 Mg Tab) 25 mg PO BID TALI Stop: 07/27/24 08:59 Last Admin: 06/30/24 07:48 Dose: 25 mg Travoprost (Travoprost Z 0.004% Oph Soln 2.5 Ml Btl) 1 drops OP HS TALI Stop: 07/27/24 20:59 Last Admin: 06/29/24 19:52 Dose: 1 drops (1) Fall Encounter type: initial encounter Qualified Code(s): W19.XXXA - Unspecified fall, initial encounter
[2024-06-30 14:19] VITALS: BP 122/69; PULSE 68
--- NOTE | 2024-07-01 07:21 | Discharge Summary ---
Date of Service July 01, 2024 Admission HPI Per Admitting Provider History obtained from patient and records. Medical history significant for CHF, A-fib on Eliquis, hypertension, past tobacco abuse, glaucoma. Patient with junky cough symptoms the last couple of days. Denies aspiration. No chest pain or SOB. Not sure about sick contacts. Patient fell at home this morning. Feet got tangled in the walker. Walker hit patient's head. No LOC, syncope, chest pain, SOB. Achy right hip pain. Patient unable to get up but fell back again from weakness and lightheadedness. O2 sats 80s upon arrival at the ER. Medical History as above Surgical History : MARIA ISABEL, knee surgery Family History : Heart disease, DM Personal/Social history : past tobacco abuse, no EtOH intake Admission Exam Per Admitting Provider Physical Exam: GENERAL: Slightly uncomfortable, slightly anxious, slightly hard of hearing, no respiratory distress SKIN: Normal color, warm HEENT: Bespectacled, [place] palpebral conjunctivae, no ptosis, dry buccal mucosa, nasal cannula in place NECK : Supple, no tenderness CHEST : Decreased breath sounds, no tenderness HEART : Tachycardic, no obvious murmurs ABDOMEN: Some distention, nontender EXTREMITIES : Minimal LE swelling, right hip tenderness, no other conspicuous deformities noted NEUROLOGIC : Coherent, no facial asymmetry, slightly hard of hearing, gait and stance not assessed Principal Diagnosis Fall with right lateral thigh hematoma, hypoxia following the fall- resolved, hypertension Discharge Exam lying in bed without any acute distress Constitutional + ill appearing and average body habitus Eyes PERRL, conjunctivae normal, anicteric sclerae ENMT external ear and nose normal, oropharynx normal Neck trachea midline, no thyromegaly Respiratory + respiratory distress ( minimal respiratory distress at rest) Auscultation: + diminished lung sounds, + crackles ( occasional crackles at the bases) and + wheezes ( wheezing anteriorly) Cardiovascular Rate/Rhythm: regular rate and regular rhythm Heart Sounds: normal S1 and normal S2; no murmur Extremities: no edema Gastrointestinal (Abdomen) Inspection/Auscultation: normal bowel sounds; abdomen not distended Percussion/Palpation: abdomen soft; abdomen nontender Neurologic normal touch/pain/proprioception and moves all extremities; no focal motor deficits Lymphatic no cervical or axillary lymphadenopathy Discharge Data Allergies Allergy/AdvReac Type Severity Reaction Status Date / Time No Known Allergies Allergy Verified 06/26/24 20:22 Consultations 06/26/24 20:17 ED Decision to Admit Stat Ordered Studies 06/26/24 18:15 CT cervical spine wo con Stat CT head/brain wo con Stat 06/26/24 23:43 CT angio chest PE protocol Stat 06/27/24 07:30 CT head/brain wo con Urgent Hospital Course (1) Fall: Was admitted from primary care service with history of recurrent falls She has had a fall on the morning of admission when her feet got tangled in the walker Traumatic head injury, traumatic right hip contusion secondary to fall CT of the head and neck and relevant x-rays did not show any fracture Will get PT and OT evaluation and may need placement Will be transferred to [facility] interim care Right lateral thigh hematoma Right hip x-ray 10/05/1929 showed soft tissue swelling Has extensive bruising involving the left lateral thigh with a small hematoma She has been getting physical therapy and denies any significant problem with that The bruising will take at least 4 to 6 weeks to resolve (2) Acute hypoxemic respiratory failure: She was noted to be hypoxic with shortness of breath in the emergency room with ongoing complaints of productive cough for the last few days CT of the chest was unremarkable and CTA did not show any pulmonary embolism No history of COPD Likely has complicated bronchitis No sepsis for now Started on doxycycline and will continue and finish the course Has been getting nebulized bronchodilator as needed as well Clinically much better has been saturating normally on room air and does not have any shortness of breath with activity No history of CHF and the chest x-ray is not showing any congestive changes BNP was minimally high No signs of fluid overload Hypertension, stable Hyperglycemia ro DM HbA1c is 5.5 Past tobacco abuse DVT prophylaxis SCDs while Eliquis on hold Will start Eliquis Will hold Eliquis for about 5 more days because of the hematoma that developed on the right lateral thigh following the fall DNR (3) Atrial fibrillation: PAF on Eliquis, patient NSR, patient noncompliant with home beta-michael Rate remains high at around 91 She remains asymptomatic Will start Eliquis Total Time Total Time Spent Total Time Spent (In Minutes): 40 minutes Discharge Plan Discharge Items Patient Disposition: Transfer [facility] Fac Reason For Visit: RESP FAILURE Discharge Diagnosis: Fall with right lateral thigh hematoma, hypoxia following the fall- resolved, hypertension Condition on Discharge: Good Activity: Resume your previous activity Non-emergency contact: Primary Care Provider Call non-emergency contact if: you have any medication questions and your symptoms worsen Follow-up/Referrals: Pernell Humphrey MD [Primary Care Provider] - ( please make an appointment with your PCP within 7 days following discharge from the facility) Diet: Heart Healthy Addtl Attending Provider Instructions: Please take precautions to avoid falls Continue with the PT and OT Your hematoma on the right lateral heel and the bruising will take 4 to 6 weeks to resolve Do not restart Eliquis until 07/05/2024 Please keep appointments with the healthcare provider Pending Studies at Discharge: No Stand-Alone Forms: My [facility] Skilled Items Patient informed of condition?: Yes DNR: No Discharge Level of Care: Skilled Communicable Disease: No Discharge Prognosis: Stable Lines: None Urinary Catheter: No Medications and DC Order Prescriptions: New doxycycline hyclate 100 mg Capsule 100 mg PO BID Qty: 12 0RF metoprolol tartrate 25 mg Tablet 25 mg PO BID Qty: 30 0RF Continued Eliquis 5 mg tablet 5 mg PO BID brimonidine 0.15 % drops 1 drp ophthalmic (eye) BID travoprost 0.004 % drops 1 drp ophthalmic (eye) HS Discharge Orders: Discharge Order (Routine); Ordered 06/30/24 Ordered By: Eugenio Metzger Admission Data Admit Date/Time: 06/26/24 22:38 Attending Provider: Eugenio Metzger Admit Provider: [place] Primary Care Provider: Pernell Humphrey Other Providers: Merlyn Arboleda; [place]; Ben Paez Other Interventions: Discharge Summary Assessment (RN) Last Done: 06/30/24 14:18
--- NOTE | 2024-07-01 11:20 | Electrocardiogram Report ---
Test Reason : Blood Pressure : */* mmHG Vent. Rate : 101 BPM Atrial Rate : 101 BPM P-R Int : 210 ms QRS Dur : 110 ms QT Int : 356 ms P-R-T Axes : 25 -40 113 degrees QTcB Int : 461 ms Sinus tachycardia with 1st degree A-V block Left axis deviation Moderate voltage criteria for LVH, may be normal variant ( R in aVL , Esteban product ) Cannot rule out Inferior infarct , age undetermined Anterolateral infarct , age undetermined Abnormal ECG No previous ECGs available Confirmed by Mahin Friedman ([id number]) on 07/01/2024 11:19:26 AM Referred By: REFERRED SELF Confirmed By: Mahin Friedman
== END 2024-06-30 14:18 | DRG 604 ==
LOC: ED 17:48 → 2N 22:38 → SUATTDRO 22:38 → 2N 06-27 00:03